=== PATIENT | female | born 1930 | race Caucasian/White ===

== ENCOUNTER → 2017-01-04 | Outpatient (CLI) | payer MEDICARE, OTHER ==
[~2017-01-04] MED LIST: ACETAMINOPHEN500 MG PO; ADVIL200 M2 PO; ALDACTONE25 MG PO; ARICEPT10 MG PO; BENADRYL25 MG PO; CENTRUM SILVER1 TAB PO; COLACE100 MG PO; COMBIGAN EYE DRO5 ML OPHTH; GLYCERIN1 EAC1 R; LEVOTHROID (SY50 MCG PO; METAMUCIL CAPSU1 CAP PO; NITROSTAT0.4 MG SL; PRADAXA75 MG PO; PRAVACHOL80 MG PO; TOPROL XL100 MG PO; TOPROL XL50 MG PO; VASOTEC10 M1 PO; VESICARE5 MG; VITAMIN D1000 UNI1 PO
[2017-01-04 07:56] LABS: PROTIME 22.8 SECONDS (9.6-11.1)
[2017-01-04 08:12] LABS: ALBUMIN 3.2 gm/dL (3.5-5.0); ANION GAP 11.6 (10.0-19.0); CALCIUM 8.8 mg/dL (8.5-10.5); CREATININE 1.4 mg/dL (0.5-1.1); PHOSPHORUS 3.2 mg/dL (2.5-4.9); POTASSIUM 3.6 mMol/L (3.7-5.1)
== END | disposition disaster alternative care site (69) ==
LOC: LHAL 01-03 11:33
PROVIDERS: Internal Medicine
DX: I48.91 Unspecified atrial fibrillation (principal); N18.9 Chronic kidney disease, unspecified

== ENCOUNTER → 2017-01-13 | Outpatient (CLI) | payer MEDICARE, OTHER ==
[2017-01-13 10:22] LABS: INR - (THERAPEUTIC) 4.8 (0.9-1.1); PROTIME 58.2 SECONDS (9.6-11.1)
== END | disposition disaster alternative care site (69) ==
LOC: LHAL 08:13
PROVIDERS: Internal Medicine
DX: I48.91 Unspecified atrial fibrillation (principal)

== ENCOUNTER → 2017-01-24 | Outpatient (CLI) | payer MEDICARE, OTHER ==
[2017-01-24 08:30] LABS: INR - (THERAPEUTIC) 2.4 (0.9-1.1); PROTIME 27.4 SECONDS (9.6-11.1)
== END | disposition disaster alternative care site (69) ==
LOC: LHAL 01-23 13:36
PROVIDERS: Internal Medicine
DX: I48.91 Unspecified atrial fibrillation (principal)

== ENCOUNTER → 2017-01-26 | Outpatient (CLI) | payer MEDICARE, OTHER | END | disposition disaster alternative care site (69) | LOC: GAMB 15:01 | DX: R53.1 Weakness (principal); M25.551 Pain in right hip; W19.XXXA Unspecified fall, initial encounter | CPT/HCPCS: A0425; A0427 ==

== ENCOUNTER → 2017-01-26 | Outpatient (CLI) | payer MEDICARE | END | disposition disaster alternative care site (69) | LOC: GAMB 15:01 | DX: R53.1 Weakness (principal); M25.551 Pain in right hip; W19.XXXA Unspecified fall, initial encounter ==

== ENCOUNTER → 2017-03-15 | Outpatient (CLI) | payer MEDICARE ==
[2017-03-15 08:12] LABS: INR - (THERAPEUTIC) 1.07 (0.92-1.07); PROTIME 11.2 SECONDS (9.8-11.4)
== END | disposition disaster alternative care site (69) ==
LOC: LHAL 03-14 16:55
PROVIDERS: Internal Medicine
DX: I48.91 Unspecified atrial fibrillation (principal)

== ENCOUNTER → 2017-03-18 | Outpatient (CLI) | payer MEDICARE, OTHER | END | disposition disaster alternative care site (69) | LOC: GAMB 09:09 | DX: M79.604 Pain in right leg (principal); M79.605 Pain in left leg; R11.0 Nausea; Z79.2 Long term (current) use of antibiotics; Z79.899 Other long term (current) drug therapy | CPT/HCPCS: A0425; A0427; J2405; J3010 ==